=== PATIENT | male | born 1965 | race African-American/Black ===

== ENCOUNTER 2017-03-17 23:36 | Emergency (ER) | payer MEDICARE ==
[~2017-03-17] VITALS: Ht 182.9 cm; Wt 72.6 kg
[2017-03-17 23:37] VITALS: BP 172/114
== END 2017-03-18 01:44 | disposition home or self-care (01) ==
LOC: ED 03-18 01:38
DX: T78.40XA Allergy, unspecified, initial encounter (principal); X58.XXXA Exposure to other specified factors, initial encounter
CPT/HCPCS: 99283

== ENCOUNTER 2017-03-29 00:34 | Emergency (ER) | payer MEDICARE ==
[~2017-03-29] VITALS: Ht 182.9 cm; Wt 75.0 kg
[2017-03-29 00:48] VITALS: BP 134/89
== END 2017-03-29 01:24 | disposition home or self-care (01) ==
LOC: ED 00:59
DX: Z76.0 Encounter for issue of repeat prescription (principal); L29.9 Pruritus, unspecified; F41.9 Anxiety disorder, unspecified
CPT/HCPCS: 99283

== ENCOUNTER 2017-04-12 19:23 | Emergency (ER) | payer SELFPAY ==
[~2017-04-12] VITALS: Ht 182.9 cm; Wt 71.3 kg
[2017-04-12 19:31] VITALS: BP 135/81
== END 2017-04-12 20:52 | disposition home or self-care (01) ==
LOC: ED 20:46
DX: B34.9 Viral infection, unspecified (principal); F17.200 Nicotine dependence, unspecified, uncomplicated
CPT/HCPCS: 71020

== ENCOUNTER 2017-07-24 20:04 | Emergency (ER) | payer MEDICARE ==
[~2017-07-24] VITALS: Ht 182.9 cm; Wt 65.5 kg
[2017-07-24 20:06] VITALS: BP 123/89
== END 2017-07-24 20:33 | disposition home or self-care (01) ==
LOC: ED 20:27
DX: B86 Scabies (principal); F45.8 Other somatoform disorders
CPT/HCPCS: 99283

== ENCOUNTER 2017-08-13 17:17 | Emergency (ER) | payer MEDICARE | END 2017-08-13 19:11 | disposition left against medical advice (07) | LOC: ED 19:05 | DX: Z53.21 Procedure and treatment not carried out due to patient leaving prior to being seen by health care provider (principal) ==

== ENCOUNTER 2017-08-14 20:16 | Emergency (ER) | payer MEDICARE ==
[~2017-08-14] VITALS: Ht 182.9 cm; Wt 69.5 kg
[2017-08-14] MEDS ORDERED: ACETAMINOPHEN 500 MG TABLET ONE (21:21)
[2017-08-14] MEDS ORDERED: ACETAMINOPHEN 500 MG TABLET PO ONE (21:30)
[2017-08-14] MEDS ORDERED: IBUPROFEN 200 MG TABLET ONE (22:22)
[2017-08-14 22:28] VITALS: BP 114/73
[2017-08-14] MEDS ORDERED: IBUPROFEN 200 MG TABLET PO ONE (22:30)
[2017-08-14 22:35] LABS: HEMATOCRIT 43.5 % (39.2-51.8); HEMOGLOBIN 14.8 g/dL (13.7-18.0); WHITE BLOOD COUNT 5.6 x10^3/uL (3.4-10)
[2017-08-14 22:38] LABS: BLOOD UREA NITROGEN 12 mg/dL (7-18)
== END 2017-08-14 23:01 | disposition home or self-care (01) ==
LOC: ED 22:27
DX: J02.8 Acute pharyngitis due to other specified organisms (principal); B34.9 Viral infection, unspecified
CPT/HCPCS: 36415; 71020; 80048; 82040; 85025; 99285

== ENCOUNTER 2017-10-28 10:28 | Emergency (ER) | payer MEDICARE ==
[~2017-10-28] VITALS: Ht 182.9 cm; Wt 69.3 kg
[2017-10-28 10:29] VITALS: BP 151/96
== END 2017-10-28 11:27 | disposition home or self-care (01) ==
LOC: ED 11:21
DX: Z00.8 Encounter for other general examination (principal)
CPT/HCPCS: 99283

== ENCOUNTER 2017-11-11 17:47 | Emergency (ER) | payer MEDICARE ==
[~2017-11-11] VITALS: Ht 175.3 cm; Wt 70.8 kg
[2017-11-11 17:53] VITALS: BP 119/72
== END 2017-11-11 18:39 | disposition home or self-care (01) ==
LOC: ED 18:33
DX: B86 Scabies (principal); Z59.0 Homelessness
CPT/HCPCS: 99283

== ENCOUNTER 2017-12-19 20:07 | Emergency (ER) | payer MEDICARE ==
[~2017-12-19] VITALS: Ht 182.9 cm; Wt 71.3 kg
[2017-12-19] MEDS ORDERED: ACETAMINOPHEN 325 MG TABLET PO ONE (20:30)
[2017-12-19] MEDS ORDERED: ONDANSETRON ODT 4 MG PO ONE (20:30)
[2017-12-19] MEDS ORDERED: ACETAMINOPHEN 500 MG TABLET ONE (21:02)
[2017-12-19] MEDS ORDERED: ONDANSETRON ODT 4 MG ONE (21:02)
[2017-12-19 21:06] LABS: RAPID INFLUENZA A Negative (Negative); RAPID INFLUENZA B Negative (Negative)
[2017-12-19 21:20] LABS: MICROSCOPIC AUTO
[2017-12-19 21:24] LABS: CULTURE INDICATED? NO
[2017-12-19] MEDS ORDERED: AZITHROMYCIN 500 MG TABLET PO ONE (22:00)
[2017-12-19 22:09] VITALS: BP 129/78
[2017-12-19] MEDS ORDERED: AZITHROMYCIN 250 MG TABLET ONE (22:56)
== END 2017-12-19 23:45 | disposition home or self-care (01) ==
LOC: ED 21:40
DX: J11.00 Influenza due to unidentified influenza virus with unspecified type of pneumonia (principal); J43.9 Emphysema, unspecified
CPT/HCPCS: 71046; 81001; 87400; 99285; Q0162